=== PATIENT | male | born 1960 | race Caucasian/White ===

== ENCOUNTER 2023-08-17 09:36 | Emergency (ER) | payer OTHER, BC, SELFPAY ==
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
[2023-08-17 09:41] VITALS: BP 164/79; PULSE 96; RESP 18; TEMP 36.7; O2SAT 95
== END 2023-08-17 11:48 | disposition home or self-care (01) ==
LOC: ANHED 11:04
PROVIDERS: Emergency Provider Nurse Practitioner Family
DX: S39.012A Strain of muscle, fascia and tendon of lower back, initial encounter (principal); S29.012A Strain of muscle and tendon of back wall of thorax, initial encounter; M47.816 Spondylosis without myelopathy or radiculopathy, lumbar region; M47.814 Spondylosis without myelopathy or radiculopathy, thoracic region; V63.5XXA Driver of heavy transport vehicle injured in collision with car, pick-up truck or van in traffic accident, initial encounter
CPT/HCPCS: 72072; 72100; 99283